=== PATIENT | female | born 1975 | race Caucasian/White ===

== ENCOUNTER 2024-09-25 22:07 | Emergency (ER) | payer OTHER, SELFPAY ==
[2024-09-25 22:10] VITALS: BP 156/88; PULSE 83; RESP 18; O2SAT 98
[2024-09-25 22:17] VITALS: RESP 18
[2024-09-25 23:11] LABS: Bilirubin Negative (Negative); Blood Small (Negative); Clarity Clear (Clear); Glucose Negative (Negative); Ketones Negative (Negative); Leukocyte Esterase Negative (Negative); Nitrite Negative (Negative); Specific Gravity >= 1.030 (1.005-1.025); Urobilinogen 0.2 mg/dL (Up to 0.2); pH 5.5 (5-8)
[2024-09-25 23:18] LABS: Bacteria Rare HPF (Negative); C & S Indicated? No; Casts Negative LPF (Negative); Crystals Negative HPF (Negative); Epithelial Cells Rare HPF (Negative); Mucus Negative (Negative); WBC Negative HPF (0-5)
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
[2024-09-25 23:29] VITALS: BP 132/65; PULSE 84; RESP 18; O2SAT 98
== END 2024-09-25 23:31 | disposition home or self-care (01) ==
LOC: ER 23:43
PROVIDERS: Emergency Provider Student in an Organized Health Care Education/Training Program; PCP Family Medicine
DX: R10.31 Right lower quadrant pain (principal); S93.401A Sprain of unspecified ligament of right ankle, initial encounter; V40.6XXA Car passenger injured in collision with pedestrian or animal in traffic accident, initial encounter
CPT/HCPCS: 76604; 76705; 76857; 80053; 81025; 83690; 99284; 81003; 81015; 85025